=== PATIENT | female | born 1960 | race Caucasian/White ===

== ENCOUNTER 2020-04-08 11:57 | Inpatient (IN) | payer BC ==
[~2020-04-08] VITALS: Ht 165.1 cm; Wt 77.5 kg
--- NOTE | 2020-04-08 12:49 | NUR ---
DAIRY BACTERIOLOGIST: PT AMBULATORY TO ROOM FROM LOBBY WITH STEADY GAIT AT THIS TIME WITH PRIMARY RN LENNOX.
--- NOTE | 2020-04-08 13:01 | NUR ---
PT COMPLAINING OF ABDOMINAL PAIN THAT RADIATES TO HER BACK. PT STATED THAT THE PAIN STARTED YESTERDAY. PT STATED THAT SHE FEELS NAUSEOUS, BUT HAS NOT HAD ANY VOMITING OR DIARRHEA. PT DENIES ANY PAIN WITH URINATION.
[2020-04-08 13:18] LABS: BASOPHILS % (AUTO) 1 % (0-1); EOSINOPHILS % (AUTO) 5 % (1-7); LYMPHOCYTES % (AUTO) 27 % (22-44); MEAN CORPUSCULAR HEMOGLOBIN 32.6 pg (27.0-34.8); MEAN CORPUSCULAR HGB CONC 34.8 g/dL (32.4-35.8); MEAN PLATELET VOLUME 7.6 fL (7.4-10.4); MONOCYTES % (AUTO) 6 % (2-9); NEUTROPHILS % (AUTO) 62 % (42-75); PLATELET COUNT 342 x10^3/uL (130-400); RED BLOOD COUNT 3.75 x10^6/uL (3.82-5.3); RED CELL DISTRIBUTION WIDTH 14.4 % (9.6-15.2)
[2020-04-08 13:19] LABS: ALANINE AMINOTRANSFERASE 908 U/L (12-78); ALBUMIN 3.9 g/dL (3.4-5.0); ANION GAP 5 mmol/L (5-15); CALCIUM 9.2 mg/dL (8.5-10.1); CHLORIDE 109 mmol/L (98-107); CREATININE 0.84 mg/dL (0.55-1.02)
[2020-04-08 13:20] LABS: MICROSCOPIC NOT IND
[2020-04-08 13:20] LABS: MD NO
[2020-04-08 13:27] LABS: ALKALINE PHOSPHATASE 344 U/L (45-117); BILIRUBIN,TOTAL 4.6 mg/dL (0.2-1.0); TOTAL PROTEIN 7.6 g/dL (6.4-8.2)
--- NOTE | 2020-04-08 14:23 | NUR ---
PT RESTING IN BED, CALL LIGHT IN REACH.
[2020-04-08] MEDS ORDERED: HYDROmorphone 1 MG/ML, 1ML INJ ONE (14:29)
[2020-04-08] MEDS ORDERED: ONDANSETRON 2MG/ML, 2ML ONE ×3 (14:30→16:20)
[2020-04-08] MEDS ORDERED: SODIUM CHLORIDE 0.9% 1,000ML IVBOLUS ONE (14:30)
[2020-04-08] MEDS ORDERED: SODIUM CHLORIDE FLUSH 10ML SYR IVF ONE (14:30)
[2020-04-08] MEDS ORDERED: ONDANSETRON 2MG/ML, 2ML IVPush ONE ×2 (14:30→16:30)
[2020-04-08] MEDS ORDERED: HYDROmorphone 2 MG/ML, 1ML IVPush PRN ×2 (14:30→17:00)
[2020-04-08] MEDS ORDERED: SODIUM CHLORIDE 0.9% 1,000 ML IV ONE (14:30)
--- NOTE | 2020-04-08 15:04 | NUR ---
PT TO CT
[2020-04-08] MEDS ORDERED: OMNIPAQUE 350 MG/ML, 100ML BOTTLE ONE (15:13)
[2020-04-08] MEDS ORDERED: SODIUM CHLORIDE FLUSH 10ML SYR IVF PRN (16:00)
--- NOTE | 2020-04-08 16:05 | NUR ---
DORINA GOMES AT BEDSIDE TO DISCUSS POC
[2020-04-08] MEDS ORDERED: ACETAMINOPHEN 325 MG TABLET PO PRN (17:00)
[2020-04-08] MEDS ORDERED: DOCUSATE 100 MG CAPSULE PO PRN (17:00)
[2020-04-08] MEDS ORDERED: METHOCARBAMOL 500 MG TABLET PO PRN (17:00)
[2020-04-08] MEDS ORDERED: ENALAPRILAT 1.25 MG/ML, 2ML IVPush PRN (17:00)
[2020-04-08] MEDS ORDERED: ZOLPIDEM 5MG TABLET PO PRN (17:00)
[2020-04-08] MEDS ORDERED: GUAIFENESIN/DM 200-20MG, 10ML UDC PO PRN (17:00)
--- NOTE | 2020-04-08 17:17 | NUR ---
REPORT CALLED TO JUAN DIEGO TELLES
[2020-04-08] MEDS: ONDANSETRON 2MG/ML, 2ML IVPush PRN (17:41)
[2020-04-08] MEDS: LACTATED RINGERS 1,000 ML IV SCH ×2 (17:42→23:47)
[2020-04-08] MEDS ORDERED: PROMETHAZINE 25 MG/ML, 1ML IM PRN (18:30)
[2020-04-08] MEDS ORDERED: PROMETHAZINE 25 MG/ML, 1ML IV PRN (18:30)
[2020-04-08 19:23] VITALS: BP 148/82
[2020-04-08] MEDS: FAMOTIDINE 20 MG/2 ML IVPush SCH (21:00)
[2020-04-09 02:58] VITALS: BP 121/74
[2020-04-09 05:31] LABS: BASOPHILS % (AUTO) 1 % (0-1); EOSINOPHILS % (AUTO) 4 % (1-7); LYMPHOCYTES % (AUTO) 29 % (22-44); MEAN CORPUSCULAR HEMOGLOBIN 32.9 pg (27.0-34.8); MEAN CORPUSCULAR HGB CONC 34.5 g/dL (32.4-35.8); MEAN PLATELET VOLUME 7.4 fL (7.4-10.4); MONOCYTES % (AUTO) 7 % (2-9); NEUTROPHILS % (AUTO) 59 % (42-75); PLATELET COUNT 268 x10^3/uL (130-400); RED CELL DISTRIBUTION WIDTH 14.6 % (9.6-15.2)
[2020-04-09 05:33] LABS: MD NO
[2020-04-09 05:40] LABS: CALCIUM 8.4 mg/dL (8.5-10.1); CHLORIDE 111 mmol/L (98-107)
[2020-04-09 05:44] LABS: ANION GAP 8 mmol/L (5-15); CREATININE 0.62 mg/dL (0.55-1.02)
[2020-04-09] MEDS: ONDANSETRON 2MG/ML, 2ML IVPush PRN (05:58)
[2020-04-09] MEDS: LACTATED RINGERS 1,000 ML IV SCH ×2 (05:59→13:00)
[2020-04-09 06:27] VITALS: BP 128/80
[2020-04-09] MEDS: FAMOTIDINE 20 MG/2 ML IVPush SCH (08:06)
[2020-04-09] MEDS ORDERED: NALOXONE 1 MG/ML, 2ML ONE (10:25)
[2020-04-09] MEDS ORDERED: MIDAZOLAM 1 MG/ML, 5ML ONE (10:25)
[2020-04-09] MEDS ORDERED: FLUMAZENIL 0.1 MG/1 ML, 5ML ONE (10:25)
[2020-04-09] MEDS ORDERED: FENTANYL PF 100 MCG/2ML ONE ×2 (10:25)
[2020-04-09 11:41] VITALS: BP 112/70
[2020-04-09 13:17] VITALS: BP 112/71
[2020-04-09] MEDS ORDERED: PROM12.57 PO (14:17)
[2020-04-09] MEDS ORDERED: HYDR-3241 PO (14:17)
[2020-04-09] MEDS ORDERED: ONDA4TAB13 SL (14:17)
== END 2020-04-09 15:30 | disposition home or self-care (01) | DRG 435 ==
LOC: ED 15:42 → EDIP 16:00 → 4NW 17:27 → DCLOUNGE 04-09 15:16
PROVIDERS: ADMIT Internal Medicine; ATTEND Internal Medicine
PROC: 0FBG3ZX Excision of Pancreas, Percutaneous Approach, Diagnostic (ICD-10-PCS; principal; 2020-04-09)
DX: C25.9 Malignant neoplasm of pancreas, unspecified (principal); K85.90 Acute pancreatitis without necrosis or infection, unspecified; R79.89 Other specified abnormal findings of blood chemistry; E87.8 Other disorders of electrolyte and fluid balance, not elsewhere classified; Z80.1 Family history of malignant neoplasm of trachea, bronchus and lung
CPT/HCPCS: 36415; 48102; 74177; 76700; 77012; 80048; 80053; 81003; 83690; 85025; 88307; 96361; 96374; 96375; 96376; 99156; 99157; 99285; G0378; J1170; J2250; J2405; J2550; J3010; Q9967; J2310; J7030; J7120

== ENCOUNTER 2020-04-18 17:05 | Inpatient (IN) | payer BC ==
[~2020-04-18] VITALS: Ht 165.1 cm; Wt 71.5 kg
[~2020-04-18 17:05] MED LIST: HYDR-3241 PO; ONDA4TAB13 SL; PROM12.57 PO
[2020-04-18 18:37] LABS: MEAN CORPUSCULAR HEMOGLOBIN 33.1 pg (27.0-34.8); MEAN CORPUSCULAR HGB CONC 34.5 g/dL (32.4-35.8); MEAN PLATELET VOLUME 7.9 fL (7.4-10.4); PLATELET COUNT 327 x10^3/uL (130-400); RED BLOOD COUNT 3.46 x10^6/uL (3.82-5.3); RED CELL DISTRIBUTION WIDTH 17.4 % (9.6-15.2)
[2020-04-18 18:49] LABS: ALANINE AMINOTRANSFERASE 365 U/L (12-78); ALBUMIN 3.2 g/dL (3.4-5.0); ANION GAP 10 mmol/L (5-15); CALCIUM 9.5 mg/dL (8.5-10.1); CHLORIDE 102 mmol/L (98-107)
[2020-04-18 18:51] LABS: ALKALINE PHOSPHATASE 659 U/L (45-117)
[2020-04-18 18:55] LABS: TOTAL PROTEIN 6.5 g/dL (6.4-8.2)
[2020-04-18] MEDS ORDERED: SODIUM CHLORIDE FLUSH 10ML SYR IVF ONE (19:00)
--- NOTE | 2020-04-18 19:03 | NUR ---
PT TO BR INDEPENDENTLY. UA OBTAINED.
[2020-04-18 19:18] LABS: MD YES
[2020-04-18] MEDS ORDERED: MORPHINE SULFATE 4 MG/ML, 1ML ONE (19:19)
[2020-04-18] MEDS ORDERED: ONDANSETRON 2MG/ML, 2ML ONE (19:19)
[2020-04-18 19:27] LABS: <PLATELET ESTIMATE> ADEQUATE; <PLT MORPHOLOGY> NORMAL PLT MORPH; EOS#(MANUAL) 0.05 x10^3/uL (0.0-0.4); EOS% (MANUAL) 1 % (1-7); LYMPH#(MANUAL) 0.74 x10^3/uL (1-3.4); LYMPHS% (MANUAL) 14 % (22-44); MONOS#(MANUAL) 0.53 x10^3/uL (0.3-2.7); MONOS% (MANUAL) 10 % (2-9); SEG#(MANUAL) 3.98 x10^3/uL (1.8-6.8); SEGS% (MANUAL) 75 % (42-75)
[2020-04-18 19:28] LABS: HYPOCHROMIA 1+
[2020-04-18] MEDS ORDERED: ONDANSETRON 2MG/ML, 2ML IVPush ONE (19:30)
[2020-04-18] MEDS ORDERED: MORPHINE SULFATE 4 MG/ML, 1ML IVPush PRN ×2 (19:30→21:30)
--- NOTE | 2020-04-18 19:30 | NUR ---
Patient is resting comfortably in bed. Vital Signs within normal limits.
--- NOTE | 2020-04-18 20:18 | NUR ---
PT TO CT
[2020-04-18] MEDS ORDERED: OMNIPAQUE 350 MG/ML, 100ML BOTTLE ONE (20:33)
--- NOTE | 2020-04-18 20:33 | NUR ---
PT BACK FROM CT
--- NOTE | 2020-04-18 20:51 | NUR ---
RPT TO [facility]
--- NOTE | 2020-04-18 20:56 | NUR ---
BEDSIDE REPORT FROM YASH TELLES
--- NOTE | 2020-04-18 21:05 | NUR ---
PT SITTING UPRIGHT ON GURNEY, SPEAKING WITH CARINA JOHN. PT DENIES ANY NEEDS AT THIS TIME, CALL LIGHT AND PERSONAL BELONGINGS IN REACH.
[2020-04-18] MEDS ORDERED: ONDANSETRON 2MG/ML, 2ML IVPush PRN (21:30)
[2020-04-18] MEDS ORDERED: SODIUM CHLORIDE FLUSH 10ML SYR IVF PRN (21:30)
--- NOTE | 2020-04-18 21:48 | NUR ---
GI AND HOSPITALIST AT BEDSIDE. COVID SWAB WALKED TO LAB BY THIS RN
--- NOTE | 2020-04-18 21:54 | NUR ---
Pt to be admitted to ONC, room 437. Report called to ROSE.
[2020-04-18] MEDS ORDERED: morphine SULFATE 10 MG/ML, 1ML IVPush PRN (22:00)
[2020-04-18] MEDS ORDERED: BISACODYL 10 MG SUPP PR PRN (22:00)
[2020-04-18] MEDS ORDERED: POLYETHYLENE GLYCOL 17 GM PACKET PO PRN (22:00)
[2020-04-18 22:12] VITALS: BP 149/75
[2020-04-18] MEDS ORDERED: HEPARIN 5,000 UNITS/ML, 1ML IV ONE (22:30)
[2020-04-18] MEDS ORDERED: HEPARIN 5,000 UNITS/ML, 1ML IV PRN (22:30)
[2020-04-18] MEDS ORDERED: HEPARIN 25,000 UNITS/250ML PMX 250 ML IV PRN (22:30)
[2020-04-18 22:59] LABS: INTERNATIONAL NORMALIZED RATIO 1.03 (0.93-1.1)
[2020-04-18] MEDS: SODIUM CHLORIDE 0.9% 1,000 ML IV SCH (23:09)
[2020-04-18] MEDS: ONDANSETRON 2MG/ML, 2ML IVPush PRN (23:38)
[2020-04-19 02:36] VITALS: BP 115/61
[2020-04-19 05:41] LABS: CHLORIDE 104 mmol/L (98-107)
[2020-04-19 05:43] LABS: MEAN CORPUSCULAR HEMOGLOBIN 33.5 pg (27.0-34.8); MEAN CORPUSCULAR HGB CONC 34.5 g/dL (32.4-35.8); MEAN PLATELET VOLUME 8.3 fL (7.4-10.4); PLATELET COUNT 360 x10^3/uL (130-400); RED BLOOD COUNT 3.34 x10^6/uL (3.82-5.3); RED CELL DISTRIBUTION WIDTH 17.7 % (9.6-15.2)
[2020-04-19 05:49] LABS: ALANINE AMINOTRANSFERASE 318 U/L (12-78); ALBUMIN 2.9 g/dL (3.4-5.0); ALKALINE PHOSPHATASE 603 U/L (45-117); ANION GAP 8 mmol/L (5-15); CALCIUM 9.1 mg/dL (8.5-10.1)
[2020-04-19 05:51] LABS: CREATININE 0.95 mg/dL (0.55-1.02)
[2020-04-19 05:53] LABS: BILIRUBIN,TOTAL 21.1 mg/dL (0.2-1.0)
[2020-04-19 06:09] LABS: MD YES
[2020-04-19 06:10] LABS: EOS#(MANUAL) 0.17 x10^3/uL (0.0-0.4); EOS% (MANUAL) 3 % (1-7); LYMPH#(MANUAL) 1.01 x10^3/uL (1-3.4); LYMPHS% (MANUAL) 18 % (22-44); MONOS#(MANUAL) 0.34 x10^3/uL (0.3-2.7); MONOS% (MANUAL) 6 % (2-9); SEG#(MANUAL) 4.09 x10^3/uL (1.8-6.8); SEGS% (MANUAL) 73 % (42-75)
[2020-04-19 06:11] LABS: ANISOCYTOSIS 1+; POLYCHROMASIA 1+; TARGET CELLS 1+
[2020-04-19 06:12] LABS: <PLATELET ESTIMATE> ADEQUATE; <PLT MORPHOLOGY> NORMAL PLT MORPH
[2020-04-19] MEDS: FAMOTIDINE 20 MG/2 ML IVPush SCH ×3 (06:20→20:27)
[2020-04-19 07:05] VITALS: BP 106/67
[2020-04-19] MEDS: LACTOBACILLUS CHEW TABLET PO SCH ×3 (07:58→20:27)
[2020-04-19] MEDS: SENNA/DOCUSATE TABLET PO SCH (07:58)
[2020-04-19] MEDS ORDERED: POTASSIUM CHLORIDE 20 MEQ TAB.ER.PRT PO ONE (08:00)
[2020-04-19] MEDS: ONDANSETRON 2MG/ML, 2ML IVPush PRN (08:03)
[2020-04-19] MEDS: SODIUM CHLORIDE 0.9% 1,000 ML IV SCH (11:43)
[2020-04-19] MEDS ORDERED: CHLORHEXIDINE 15 ML UDC ONE (12:36)
[2020-04-19] MEDS ORDERED: FENTANYL PF 100 MCG/2ML ONE (13:24)
[2020-04-19] MEDS ORDERED: MIDAZOLAM 1 MG/ML, 2ML ONE (13:24)
[2020-04-19] MEDS ORDERED: PROPOFOL 10 MG/ML, 20ML ONE (13:28)
[2020-04-19] MEDS ORDERED: LIDOCAINE-MPF 2% ,5ML ONE (13:28)
[2020-04-19] MEDS ORDERED: DEXAMETHASONE 4 MG/ML, 5ML ONE (13:28)
[2020-04-19] MEDS ORDERED: KETOROLAC 30 MG/1 ML ONE (13:28)
[2020-04-19] MEDS ORDERED: ONDANSETRON 2MG/ML, 2ML ONE (13:28)
[2020-04-19] MEDS ORDERED: SUCCINYLCHOLINE 20 MG/ML, 10ML ONE (13:28)
[2020-04-19] MEDS ORDERED: HYDROmorphone 1 MG/ML, 1ML INJ IVPush PRN (13:30)
[2020-04-19] MEDS ORDERED: LABETALOL 5MG/ML, 20ML IV PRN (13:30)
[2020-04-19] MEDS ORDERED: ONDANSETRON 2MG/ML, 2ML IVPush PRN (13:30)
[2020-04-19] MEDS ORDERED: OXYcodone 5 MG/5 ML ORAL.SOL UDC PO PRN (13:30)
[2020-04-19] MEDS ORDERED: PROMETHAZINE 25 MG/ML, 1ML IVPush PRN (13:30)
[2020-04-19] MEDS ORDERED: FENTANYL PF 100 MCG/2ML IV PRN (13:30)
[2020-04-19] MEDS ORDERED: EPHEDRINE 50 MG/ML, 1ML IVPush PRN (13:30)
[2020-04-19] MEDS ORDERED: hydrALAzine 20 MG/ML, 1ML IV PRN (13:30)
[2020-04-19] MEDS ORDERED: OMNIPAQUE 350 MG/ML, 50 ML BOTTLE ONE (13:37)
[2020-04-19] MEDS ORDERED: EPHEDRINE 50 MG/ML, 1ML ONE (14:09)
[2020-04-19] MEDS ORDERED: GLYCOPYRROLATE 0.2MG/1ML, 5ML ONE (14:14)
[2020-04-19] MEDS ORDERED: PHENYLEPHRINE 10 MG/ML ONE (14:20)
[2020-04-19] MEDS ORDERED: INDOMETHACIN 50 MG SUPP.RECT ONE (14:41)
[2020-04-19] MEDS ORDERED: INDOMETHACIN 50 MG SUPP.RECT PR ONE (15:00)
[2020-04-19 18:45] VITALS: BP 145/88
[2020-04-19] MEDS ORDERED: ENOXAPARIN 40 MG/0.4 ML SQ SCH (21:00)
[2020-04-20] VITALS: BP 133/86
[2020-04-20] MEDS: SODIUM CHLORIDE 0.9% 1,000 ML IV SCH (00:40)
[2020-04-20 05:23] LABS: ALBUMIN 2.8 g/dL (3.4-5.0); ANION GAP 7 mmol/L (5-15); CHLORIDE 109 mmol/L (98-107)
[2020-04-20 05:27] LABS: ALANINE AMINOTRANSFERASE 274 U/L (12-78); ALKALINE PHOSPHATASE 589 U/L (45-117); BILIRUBIN,TOTAL 12.5 mg/dL (0.2-1.0); CREATININE 0.76 mg/dL (0.55-1.02); TOTAL PROTEIN 6.1 g/dL (6.4-8.2)
[2020-04-20 07:09] VITALS: BP 148/75
[2020-04-20] MEDS: SENNA/DOCUSATE TABLET PO SCH (09:03)
[2020-04-20] MEDS: LACTOBACILLUS CHEW TABLET PO SCH (09:03)
[2020-04-20] MEDS: FAMOTIDINE 20 MG/2 ML IVPush SCH (09:07)
[2020-04-20] MEDS ORDERED: ENOXAPARIN 80 MG/0.8 ML SQ SCH (09:30)
[2020-04-20] MEDS ORDERED: WARF-36 PO-COUM (10:05)
[2020-04-20] MEDS ORDERED: ENOX80SY4 SQ (10:05)
[2020-04-20] MEDS ORDERED: ACID1TAB7 PO (10:05)
[2020-04-20] MEDS ORDERED: SENN-211 PO (10:05)
[2020-04-20] MEDS ORDERED: WARFARIN 5 MG TABLET PO-COUM SCH (18:00)
[2020-04-20] MEDS ORDERED: SODIUM CHLORIDE 0.9% 1,000 ML IV SCH (22:00)
== END 2020-04-20 15:00 | disposition home or self-care (01) | DRG 435 ==
LOC: ED 21:29 → EDIP 21:49 → 4NW 22:05
PROVIDERS: ADMIT Internal Medicine; ATTEND Internal Medicine
PROC: BF141ZZ Fluoroscopy of Gallbladder, Bile Ducts and Pancreatic Ducts using Low Osmolar Contrast (ICD-10-PCS; 2020-04-19)
PROC: 0F798DZ Dilation of Common Bile Duct with Intraluminal Device, Via Natural or Artificial Opening Endoscopic (ICD-10-PCS; 2020-04-19)
PROC: 0F7D8DZ Dilation of Pancreatic Duct with Intraluminal Device, Via Natural or Artificial Opening Endoscopic (ICD-10-PCS; principal; 2020-04-19 13:00)
DX: C25.9 Malignant neoplasm of pancreas, unspecified (principal); K83.1 Obstruction of bile duct; I81 Portal vein thrombosis; I82.890 Acute embolism and thrombosis of other specified veins; C79.9 Secondary malignant neoplasm of unspecified site; D64.9 Anemia, unspecified; E87.6 Hypokalemia; I10 Essential (primary) hypertension; Z80.1 Family history of malignant neoplasm of trachea, bronchus and lung; Z20.822 Contact with and (suspected) exposure to COVID-19
CPT/HCPCS: 36415; 74328; J3490; 74177; 80053; 83690; 83735; 85025; 85520; 85610; 85730; 87635; 93005; 96374; 96375; 99285; G0378; J1100; J1644; J1650; J1885; J2250; J2405; J2704; J3010; Q9967; J0330; J2270; J2370; J7030

== ENCOUNTER 2020-05-31 13:53 | Inpatient (IN) | payer BC ==
[~2020-05-31] VITALS: Ht 165.1 cm; Wt 75.1 kg
[~2020-05-31 13:53] MED LIST changes: +ACID1TAB7 PO; +ENOX80SY4 SQ; +SENN-211 PO; +WARF-36 PO-COUM
[2020-05-31] MEDS ORDERED: MORPHINE SULFATE 4 MG/ML, 1ML IVPush PRN (14:30)
[2020-05-31] MEDS ORDERED: ONDANSETRON 2MG/ML, 2ML IVPush ONE (14:30)
[2020-05-31] MEDS ORDERED: SODIUM CHLORIDE FLUSH 10ML SYR IVF ONE (14:30)
[2020-05-31] MEDS ORDERED: ONDANSETRON 2MG/ML, 2ML ONE (14:36)
[2020-05-31] MEDS ORDERED: MORPHINE SULFATE 4 MG/ML, 1ML ONE (14:36)
--- NOTE | 2020-05-31 14:44 | NUR ---
PIV PLACED, LABS DRAWN AND SENT TO LAB WITH LAB SLIP. MEDS ADMIN PER APR. PT CONNECTED TO MONITORING. SISTER AT BEDSIDE.
[2020-05-31 14:50] LABS: BASOPHILS % (AUTO) 1 % (0-1); EOSINOPHILS % (AUTO) 6 % (1-7); LYMPHOCYTES % (AUTO) 14 % (22-44); MEAN CORPUSCULAR HEMOGLOBIN 32.8 pg (27.0-34.8); MEAN CORPUSCULAR HGB CONC 33.8 g/dL (32.4-35.8); MEAN PLATELET VOLUME 8.5 fL (7.4-10.4); MONOCYTES % (AUTO) 7 % (2-9); NEUTROPHILS % (AUTO) 73 % (42-75); PLATELET COUNT 343 x10^3/uL (130-400); RED BLOOD COUNT 3.36 x10^6/uL (3.82-5.3); RED CELL DISTRIBUTION WIDTH 20.9 % (9.6-15.2)
[2020-05-31 14:55] LABS: ALANINE AMINOTRANSFERASE 75 U/L (12-78); ANION GAP 9 mmol/L (5-15); CALCIUM 9.5 mg/dL (8.5-10.1); CHLORIDE 100 mmol/L (98-107); CREATININE 0.89 mg/dL (0.55-1.02); INTERNATIONAL NORMALIZED RATIO 3.37 (0.93-1.1)
[2020-05-31 14:57] LABS: ALKALINE PHOSPHATASE 672 U/L (45-117); BILIRUBIN,TOTAL 7.7 mg/dL (0.2-1.0); TOTAL PROTEIN 7.2 g/dL (6.4-8.2)
[2020-05-31 15:06] LABS: PROTHROMBIN TIME 35.2 Seconds (9.6-11.5)
--- NOTE | 2020-05-31 15:15 | NUR ---
PT STATES PAIN IS BETTER.
[2020-05-31 15:30] LABS: MD NO
[2020-05-31] MEDS ORDERED: PROCHLORPERAZINE 5 MG/ML, 2ML ONE (16:37)
--- NOTE | 2020-05-31 16:41 | NUR ---
PT C/O NAUSEA, NOTIFIED. CUTTER APPRENTICE HAND PER APR.
--- NOTE | 2020-05-31 16:53 | NUR ---
PT GOING TO CT
[2020-05-31] MEDS ORDERED: PROCHLORPERAZINE 5 MG/ML, 2ML IVPush ONE (17:00)
[2020-05-31] MEDS ORDERED: OMNIPAQUE 350 MG/ML, 75ML BOTTLE ONE (17:02)
--- NOTE | 2020-05-31 17:22 | NUR ---
PT STATES NAUSEA IS BETTER. DENIES FURTHER NEEDS AT THIS TIME.
--- NOTE | 2020-05-31 17:27 | NUR ---
ALL RESULTS ARE BACK AT THIS TIME. CHART UP FOR RECHECK.
[2020-05-31] MEDS ORDERED: PIPERACILLIN/TAZO/PMX 3.375GM 50 ML IV ONE (18:00)
[2020-05-31] MEDS ORDERED: PIPERACILLIN/TAZO/PMX 3.375GM 50 ML ONE (18:05)
--- NOTE | 2020-05-31 18:13 | NUR ---
IV ABX STARTED PER APR. 2 SETS BLOOD CX COLLECTED PRIOR TO ADMIN.
[2020-05-31] MEDS ORDERED: MORPHINE IR PO (18:18)
--- NOTE | 2020-05-31 19:15 | NUR ---
REPORT GIVEN TO BROWN TELLES. PT TRG TO ROOM 433
[2020-05-31] MEDS ORDERED: DOCUSATE 100 MG CAPSULE PO PRN (20:00)
[2020-05-31] MEDS ORDERED: hydrALAzine 20 MG/ML, 1ML IVPush PRN (20:00)
[2020-05-31] MEDS: D5%-0.45NACL+KCL 20MEQ 1,000 ML IV SCH (23:01)
[2020-06-01 02:55] VITALS: BP 91/56
[2020-06-01] MEDS: PROCHLORPERAZINE 5 MG/ML, 2ML IV PRN ×2 (03:01→20:38)
[2020-06-01] MEDS: OXYcodone IR 5MG TABLET PO PRN ×2 (03:40→20:37)
[2020-06-01 04:53] LABS: BASOPHILS % (AUTO) 1 % (0-1); EOSINOPHILS % (AUTO) 10 % (1-7); LYMPHOCYTES % (AUTO) 15 % (22-44); MEAN CORPUSCULAR HEMOGLOBIN 33.6 pg (27.0-34.8); MEAN PLATELET VOLUME 8.7 fL (7.4-10.4); MONOCYTES % (AUTO) 7 % (2-9); NEUTROPHILS % (AUTO) 67 % (42-75); PLATELET COUNT 253 x10^3/uL (130-400); RED BLOOD COUNT 2.42 x10^6/uL (3.82-5.3); RED CELL DISTRIBUTION WIDTH 20.3 % (9.6-15.2)
[2020-06-01 05:01] LABS: ALBUMIN 2.1 g/dL (3.4-5.0); ANION GAP 6 mmol/L (5-15); CALCIUM 8.1 mg/dL (8.5-10.1); CHLORIDE 106 mmol/L (98-107)
[2020-06-01 05:13] LABS: ALANINE AMINOTRANSFERASE 55 U/L (12-78); ALKALINE PHOSPHATASE 485 U/L (45-117); BILIRUBIN,TOTAL 6.7 mg/dL (0.2-1.0)
[2020-06-01 05:43] LABS: MD NO
[2020-06-01 07:48] VITALS: BP 92/59
[2020-06-01] MEDS: ONDANSETRON ODT 4 MG PO PRN ×2 (10:07→23:07)
[2020-06-01] MEDS: D5%-0.45NACL+KCL 20MEQ 1,000 ML IV SCH (10:07)
[2020-06-01 14:26] VITALS: BP 93/53
[2020-06-01] MEDS ORDERED: POTASSIUM CHLORIDE 20 MEQ TAB.ER.PRT PO ONE ×2 (19:30→21:00)
[2020-06-01 19:58] VITALS: BP 91/56
[2020-06-01] MEDS ORDERED: POTASSIUM CHLORIDE 10% 40 MEQ/30 ML UDC PO ONE (21:00)
[2020-06-01] MEDS: FAMOTIDINE 20 MG TABLET PO SCH (21:24)
[2020-06-02 01:28] VITALS: BP 101/66
[2020-06-02 05:11] LABS: BASOPHILS % (AUTO) 1 % (0-1); EOSINOPHILS % (AUTO) 11 % (1-7); LYMPHOCYTES % (AUTO) 19 % (22-44); MEAN CORPUSCULAR HEMOGLOBIN 33.3 pg (27.0-34.8); MEAN CORPUSCULAR HGB CONC 34.7 g/dL (32.4-35.8); MEAN PLATELET VOLUME 8.4 fL (7.4-10.4); MONOCYTES % (AUTO) 8 % (2-9); NEUTROPHILS % (AUTO) 61 % (42-75); PLATELET COUNT 261 x10^3/uL (130-400); RED BLOOD COUNT 2.48 x10^6/uL (3.82-5.3); RED CELL DISTRIBUTION WIDTH 20.5 % (9.6-15.2)
[2020-06-02 05:19] LABS: INTERNATIONAL NORMALIZED RATIO 3.4 (0.93-1.1); PROTHROMBIN TIME 35.5 Seconds (9.6-11.5)
[2020-06-02 05:20] LABS: ALANINE AMINOTRANSFERASE 107 U/L (12-78); ALBUMIN 2.1 g/dL (3.4-5.0); ANION GAP 5 mmol/L (5-15); CALCIUM 8.2 mg/dL (8.5-10.1); CHLORIDE 108 mmol/L (98-107); CREATININE 0.65 mg/dL (0.55-1.02)
[2020-06-02 05:22] LABS: ALKALINE PHOSPHATASE 587 U/L (45-117); BILIRUBIN,TOTAL 11.8 mg/dL (0.2-1.0)
[2020-06-02 05:33] LABS: MD NO
[2020-06-02 07:16] VITALS: BP 90/56
[2020-06-02] MEDS: ONDANSETRON ODT 4 MG PO PRN ×3 (08:06→19:19)
[2020-06-02] MEDS: FAMOTIDINE 20 MG TABLET PO SCH (08:06)
[2020-06-02] MEDS: PIPERACILLIN/TAZO/PMX 3.375GM 50 ML IV SCH ×2 (10:17→17:00)
[2020-06-02 12:05] VITALS: BP 111/80
[2020-06-02 18:21] VITALS: BP 97/62
[2020-06-02] MEDS: OXYcodone IR 5MG TABLET PO PRN (19:19)
[2020-06-03] MEDS: PIPERACILLIN/TAZO/PMX 3.375GM 50 ML IV SCH ×3 (00:10→16:53)
[2020-06-03 00:21] VITALS: BP 94/61
[2020-06-03] MEDS: OXYcodone IR 5MG TABLET PO PRN (01:30)
[2020-06-03] MEDS: ONDANSETRON ODT 4 MG PO PRN ×4 (01:30→19:30)
[2020-06-03] MEDS: PROMETHAZINE 25 MG/ML, 1ML IM PRN ×2 (02:39→20:20)
[2020-06-03 05:44] LABS: INTERNATIONAL NORMALIZED RATIO 2.17 (0.93-1.1); PROTHROMBIN TIME 22.9 Seconds (9.6-11.5)
[2020-06-03 06:30] VITALS: BP 93/59
[2020-06-03 07:01] LABS: ALBUMIN 2.1 g/dL (3.4-5.0)
[2020-06-03 07:02] LABS: BILIRUBIN,INDIRECT 4.2 mg/dL (0.0-2.0)
[2020-06-03 07:22] LABS: BILIRUBIN, DIRECT 11.7 mg/dL (0.1-0.2); BILIRUBIN,TOTAL 15.9 mg/dL (0.2-1.0)
[2020-06-03] MEDS: FAMOTIDINE 20 MG TABLET PO SCH (09:04)
[2020-06-03 13:35] VITALS: BP 105/73
[2020-06-03 18:53] VITALS: BP 96/65
[2020-06-03] MEDS: PROCHLORPERAZINE 5 MG/ML, 2ML IV PRN (22:12)
[2020-06-04] VITALS (9 sets, daily range): BP systolic 84–112; BP diastolic 51–74
[2020-06-04] MEDS: ONDANSETRON 2MG/ML, 2ML IVPush PRN ×2 (00:33→08:30)
[2020-06-04] MEDS: PIPERACILLIN/TAZO/PMX 3.375GM 50 ML IV SCH ×3 (00:54→20:25)
[2020-06-04] MEDS: OXYcodone IR 5MG TABLET PO PRN ×2 (02:01→19:32)
[2020-06-04 05:11] LABS: BASOPHILS % (AUTO) 2 % (0-1); EOSINOPHILS % (AUTO) 6 % (1-7); LYMPHOCYTES % (AUTO) 17 % (22-44); MEAN CORPUSCULAR HEMOGLOBIN 34.7 pg (27.0-34.8); MEAN CORPUSCULAR HGB CONC 35.9 g/dL (32.4-35.8); MEAN PLATELET VOLUME 9.1 fL (7.4-10.4); MONOCYTES % (AUTO) 5 % (2-9); NEUTROPHILS % (AUTO) 70 % (42-75); PLATELET COUNT 268 x10^3/uL (130-400); RED CELL DISTRIBUTION WIDTH 20.9 % (9.6-15.2)
[2020-06-04 05:15] LABS: MD NO
[2020-06-04 05:16] LABS: INTERNATIONAL NORMALIZED RATIO 1.71 (0.93-1.1); PROTHROMBIN TIME 18.1 Seconds (9.6-11.5)
[2020-06-04 05:18] LABS: ALANINE AMINOTRANSFERASE 117 U/L (12-78); ALBUMIN 2.1 g/dL (3.4-5.0); ANION GAP 8 mmol/L (5-15); CALCIUM 8.3 mg/dL (8.5-10.1); CHLORIDE 105 mmol/L (98-107)
[2020-06-04 05:20] LABS: ALKALINE PHOSPHATASE 626 U/L (45-117)
[2020-06-04 05:38] LABS: CREATININE 0.85 mg/dL (0.55-1.02)
[2020-06-04 05:40] LABS: BILIRUBIN,TOTAL 22.9 mg/dL (0.2-1.0)
[2020-06-04] MEDS ORDERED: POTASSIUM CHLORIDE 20 MEQ TAB.ER.PRT PO ONE (06:30)
[2020-06-04] MEDS ORDERED: PROMETHAZINE 25 MG/ML, 1ML ONE (08:51)
[2020-06-04] MEDS: PROMETHAZINE 25 MG/ML, 1ML IM PRN (08:54)
[2020-06-04] MEDS ORDERED: SCOPOLAMINE 1MG PATCH TD ONE (09:00)
[2020-06-04] MEDS: FAMOTIDINE 20 MG TABLET PO SCH (10:48)
[2020-06-04] MEDS: PROCHLORPERAZINE 5 MG/ML, 2ML IV PRN ×2 (10:59→17:46)
[2020-06-04] MEDS ORDERED: POTASSIUM CHLORIDE 20 MEQ in SODIUM CHLORIDE 0.9% 250 ML IV ONE (11:00)
[2020-06-04 12:39] LABS: INTERNATIONAL NORMALIZED RATIO 1.37 (0.93-1.1); PROTHROMBIN TIME 14.6 Seconds (9.6-11.5)
[2020-06-04] MEDS ORDERED: LIDOCAINE 1%, 10ML ONE (12:43)
[2020-06-04] MEDS ORDERED: MIDAZOLAM 1 MG/ML, 5ML ONE (14:14)
[2020-06-04] MEDS ORDERED: FLUMAZENIL 0.1 MG/1 ML, 5ML ONE (14:14)
[2020-06-04] MEDS ORDERED: FENTANYL PF 100 MCG/2ML ONE (14:14)
[2020-06-04] MEDS ORDERED: NALOXONE 1 MG/ML, 2ML ONE (14:14)
[2020-06-04 16:43] LABS: ANA SCREEN NEGATIVE (Negative)
[2020-06-05 03:38] VITALS: BP 102/57
[2020-06-05] MEDS: PIPERACILLIN/TAZO/PMX 3.375GM 50 ML IV SCH ×3 (04:17→20:06)
[2020-06-05 05:37] LABS: MEAN CORPUSCULAR HEMOGLOBIN 34.4 pg (27.0-34.8); MEAN CORPUSCULAR HGB CONC 35.8 g/dL (32.4-35.8); MEAN PLATELET VOLUME 8.8 fL (7.4-10.4); PLATELET COUNT 290 x10^3/uL (130-400); RED CELL DISTRIBUTION WIDTH 22.5 % (9.6-15.2)
[2020-06-05 05:44] LABS: INTERNATIONAL NORMALIZED RATIO 1.57 (0.93-1.1); PROTHROMBIN TIME 16.7 Seconds (9.6-11.5)
[2020-06-05 05:49] LABS: CHLORIDE 106 mmol/L (98-107)
[2020-06-05 06:08] LABS: ALANINE AMINOTRANSFERASE 113 U/L (12-78); ALBUMIN 2.1 g/dL (3.4-5.0); ALKALINE PHOSPHATASE 617 U/L (45-117); ANION GAP 8 mmol/L (5-15); CALCIUM 8.7 mg/dL (8.5-10.1)
[2020-06-05 06:12] LABS: CREATININE 0.91 mg/dL (0.55-1.02)
[2020-06-05 06:13] LABS: TOTAL PROTEIN 5.2 g/dL (6.4-8.2)
[2020-06-05 06:14] LABS: BILIRUBIN,TOTAL 23.8 mg/dL (0.2-1.0); MD YES
[2020-06-05 06:16] LABS: BAND#(MANUAL) 0.28 x10^3/uL; BANDS%(MANUAL) 4 % (0-7); EOS#(MANUAL) 0.21 x10^3/uL (0.0-0.4); EOS% (MANUAL) 3 % (1-7); LYMPH#(MANUAL) 1.35 x10^3/uL (1-3.4); LYMPHS% (MANUAL) 19 % (22-44); METAMYELOCYTES# (MANUAL) 0.14 x10^3/uL (0-0); METAMYELOCYTES% (MANUAL) 2 % (0-1); MONOS#(MANUAL) 0.36 x10^3/uL (0.3-2.7); MONOS% (MANUAL) 5 % (2-9); SEG#(MANUAL) 4.76 x10^3/uL (1.8-6.8); SEGS% (MANUAL) 67 % (42-75)
[2020-06-05 06:17] LABS: ANISOCYTOSIS 2+; ECHINOCYTES 1+; POLYCHROMASIA 1+; SCHISTOCYTES 1+
[2020-06-05 06:18] LABS: <PLATELET ESTIMATE> ADEQUATE; <PLT MORPHOLOGY> NORMAL PLT MORPH
[2020-06-05 06:21] LABS: SPHEROCYTES 1+; TARGET CELLS 1+
[2020-06-05 06:40] VITALS: BP 100/66
[2020-06-05] MEDS: ONDANSETRON ODT 4 MG PO PRN (09:01)
[2020-06-05] MEDS: FAMOTIDINE 20 MG TABLET PO SCH ×2 (09:03→20:06)
[2020-06-05] MEDS: morphine SULFATE 10 MG/ML, 1ML IVPush PRN ×2 (11:40→23:38)
[2020-06-05] MEDS: PROCHLORPERAZINE 5 MG/ML, 2ML IV PRN ×2 (11:41→18:34)
[2020-06-05 12:19] VITALS: BP 102/69
[2020-06-05] MEDS: PROMETHAZINE 25 MG/ML, 1ML IM PRN ×2 (12:25→23:00)
[2020-06-05] MEDS: ONDANSETRON 2MG/ML, 2ML IVPush PRN ×2 (15:01→21:02)
[2020-06-05 23:04] VITALS: BP 115/75
[2020-06-06] MEDS: PIPERACILLIN/TAZO/PMX 3.375GM 50 ML IV SCH (04:24)
[2020-06-06 04:26] VITALS: BP 103/68
[2020-06-06 05:29] LABS: MEAN CORPUSCULAR HEMOGLOBIN 35.6 pg (27.0-34.8); MEAN CORPUSCULAR HGB CONC 36.3 g/dL (32.4-35.8); MEAN PLATELET VOLUME 8.9 fL (7.4-10.4); PLATELET COUNT 319 x10^3/uL (130-400); RED BLOOD COUNT 2.18 x10^6/uL (3.82-5.3); RED CELL DISTRIBUTION WIDTH 24.2 % (9.6-15.2)
[2020-06-06 05:31] LABS: INTERNATIONAL NORMALIZED RATIO 2.08 (0.93-1.1); PROTHROMBIN TIME 21.9 Seconds (9.6-11.5)
[2020-06-06 05:54] LABS: CHLORIDE 103 mmol/L (98-107); MD YES
[2020-06-06 05:57] LABS: EOS% (MANUAL) 1 % (1-7); LYMPH#(MANUAL) 1.14 x10^3/uL (1-3.4); LYMPHS% (MANUAL) 12 % (22-44); METAMYELOCYTES# (MANUAL) 0.19 x10^3/uL (0-0); METAMYELOCYTES% (MANUAL) 2 % (0-1); MONOS#(MANUAL) 0.95 x10^3/uL (0.3-2.7); MONOS% (MANUAL) 10 % (2-9); SEG#(MANUAL) 7.13 x10^3/uL (1.8-6.8); SEGS% (MANUAL) 75 % (42-75)
[2020-06-06 05:58] LABS: ANISOCYTOSIS 2+
[2020-06-06 05:59] LABS: <PLATELET ESTIMATE> ADEQUATE; <PLT MORPHOLOGY> NORMAL PLT MORPH; POLYCHROMASIA 1+; SCHISTOCYTES 1+
[2020-06-06 06:00] LABS: MICROCYTOSIS 1+
[2020-06-06 06:02] LABS: SPHEROCYTES 1+
[2020-06-06] MEDS: ONDANSETRON 2MG/ML, 2ML IVPush PRN ×2 (06:03→11:25)
[2020-06-06 06:13] LABS: ALANINE AMINOTRANSFERASE 107 U/L (12-78); ALBUMIN 2.1 g/dL (3.4-5.0); ALKALINE PHOSPHATASE 684 U/L (45-117); ANION GAP 8 mmol/L (5-15); CALCIUM 8.5 mg/dL (8.5-10.1)
[2020-06-06 06:14] LABS: CREATININE 0.99 mg/dL (0.55-1.02)
[2020-06-06 06:15] LABS: BILIRUBIN,TOTAL 28.1 mg/dL (0.2-1.0); TOTAL PROTEIN 5.3 g/dL (6.4-8.2)
[2020-06-06 07:28] VITALS: BP 101/65
[2020-06-06] MEDS ORDERED: OXYC5TAB98 PO (08:36)
[2020-06-06] MEDS: FAMOTIDINE 20 MG TABLET PO SCH (08:37)
[2020-06-06] MEDS: PROCHLORPERAZINE 5 MG/ML, 2ML IV PRN (08:37)
[2020-06-06] MEDS: morphine SULFATE 10 MG/ML, 1ML IVPush PRN (11:25)
== END 2020-06-06 11:40 | disposition hospice, inpatient (51) | DRG 435 ==
LOC: ED 18:36 → EDIP 19:41 → 4NW 20:36
PROVIDERS: ADMIT Internal Medicine; ATTEND Hospitalist
PROC: 30233M1 Transfusion of Nonautologous Plasma Cryoprecipitate into Peripheral Vein, Percutaneous Approach (ICD-10-PCS; principal; 2020-06-04)
PROC: 0FB13ZX Excision of Right Lobe Liver, Percutaneous Approach, Diagnostic (ICD-10-PCS; 2020-06-04)
DX: C25.1 Malignant neoplasm of body of pancreas (principal); K83.1 Obstruction of bile duct; D68.59 Other primary thrombophilia; I82.890 Acute embolism and thrombosis of other specified veins; J98.11 Atelectasis; R53.81 Other malaise; D64.9 Anemia, unspecified; Z20.822 Contact with and (suspected) exposure to COVID-19; Z79.01 Long term (current) use of anticoagulants; Z80.1 Family history of malignant neoplasm of trachea, bronchus and lung; Z85.07 Personal history of malignant neoplasm of pancreas; Z86.718 Personal history of other venous thrombosis and embolism
CPT/HCPCS: 36415; 75970; 83036; 84145; 96365; 96375; 99285; J3490; 36011; 37200; 71045; 71275; 74181; 76700; 76937; 80053; 80076; 83516; 83690; 83735; 84100; 84443; 85014; 85018; 85025; 85610; 85730; 86038; 86708; 86803; 86850; 86900; 87040; 87340; 87635; 88307; 88313; 99156; 99157; C1894; G0378; J2250; J2405; J2543; J2550; J3010; J3480; Q0162; Q9967; C1769; J0780; J2270; J2310; J7050; P9017